=== PATIENT | male | born 1965 | race Caucasian/White ===

== ENCOUNTER 2017-01-25 10:41 | Emergency (ER) | payer OTHER ==
[2017-01-25 10:56] VITALS: PULSE 82; TEMP 97.8; BMI 43.5
[2017-01-25] MEDS ORDERED: predniSONE 20 MG TABLET (UD) PO ONE (11:05)
[2017-01-25] MEDS ORDERED: DOXYCYCLINE HYCLATE 100 MG CAPSULE PO ONE ×2 (11:05→11:09)
[2017-01-25] MEDS ORDERED: valACYclovir HCL 1000 MG TABLET PO ONE (11:05)
[2017-01-25] MEDS ORDERED: predniSONE 20 MG TABLET (UD) ONE (11:09)
--- NOTE | 2017-01-25 11:12 | PDOC ---
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 Patient noticed a tingling pulling sensation the left face and noticed this morning that he was having inability to wrinkle his left forehead, inability to close his left eye, left facial droop. Denies any other symptoms. Came into the ED for further evaluation. Past History - Past Medical History Allergies/Adverse Reactions: Allergies Allergy/AdvReac Type Severity Reaction Status Date / Time No Known Allergies Allergy Verified 01/25/17 10:56 Home Medications: Ambulatory Orders Benazepril/Hydrochlorothiazide [Benazepril-Hctz 20-25 mg Tab] 1 each PO DAILY Doxycycline Hyclate 100 mg PO BID #14 capsule 01/25/17 Ibuprofen [Advil -] 200 mg PO ONCE PRN 01/25/17 Paroxetine HCl [Paxil -] 10 mg PO DAILY 01/25/17 Prednisone [Deltasone -] 20 mg PO DAILY #20 tablet 01/25/17 Valacyclovir HCl [Valtrex] 1,000 mg PO TID #21 tablet 01/25/17 HTN: Yes - Psycho/Social/Smoking Cessation Hx Anxiety: Yes Suicidal Ideation: No Smoking History: Current every day smoker Number of Cigarettes Smoked Daily: 10 If you are a former smoker, when did you quit?: 1 WEEK AGO Information on smoking cessation initiated: Yes 'Breaking Loose' booklet given: 01/25/17 Hx Alcohol Use: No Drug/Substance Use Hx: No Substance Use Type: None Review of Systems - Review of Systems Able to Perform ROS?: Yes Comments:: 01/25/17 11:14 GENERAL/CONSTITUTIONAL: No fever, weakness. HEAD, EYES, EARS, NOSE AND THROAT: No change in vision. No ear pain or discharge. No sore throat. CARDIOVASCULAR: No chest pain or shortness of breath. RESPIRATORY: No cough, wheezing, or hemoptysis. GASTROINTESTINAL: No abdominal pain, nausea, vomiting, diarrhea, or decreased PO intolerance. GENITOURINARY: No dysuria, frequency, or change in urination. MUSCULOSKELETAL: No joint or muscle swelling or pain. No neck or back pain. SKIN: No rash NEUROLOGIC: left facial droop ENDOCRINE: No increased thirst. No abnormal weight change. HEMATOLOGIC/LYMPHATIC: No anemia, easy bleeding, or history of blood clots. ALLERGIC/IMMUNOLOGIC: No hives or skin allergy. *Physical Exam - Vital Signs Last Vital Signs Temp Pulse Resp BP Pulse Ox 97.8 F 82 16 160/128 97 01/25/17 10:42 01/25/17 10:42 01/25/17 10:42 01/25/17 10:42 01/25/17 10:42 - Physical Exam Comments: 01/25/17 11:15 GENERAL: Awake, alert, and fully oriented, in no acute distress. HEAD: No signs of trauma EYES: PERRLA, EOMI, sclera anicteric, conjunctiva. + Unable to move left eye lateral gaze (chronic, pt reports that this is old since childhood and not NEW for today). ENT: Auricles normal inspection, hearing grossly normal, nares patent, oropharynx clear without exudates. NECK: Normal ROM, supple, no lymphadenopathy, JVD, or masses LUNGS: Breath sounds equal, clear to auscultation bilaterally. No wheezes, and no crackles HEART: Regular rate and rhythm, normal S1 and S2, no murmurs, rubs or gallops ABDOMEN: Soft, nontender, normoactive bowel sounds. No guarding, no rebound. No masses EXTREMITIES: Normal range of motion, no edema. No clubbing or cyanosis. No cords, erythema, or tenderness NEUROLOGICAL: +left facial droop. Inability to wrinkle left forehead. normal sensation throughout. 5/5 strength upper and lower extremities. no cerebellar signs. SKIN: Warm, Dry, normal turgor, no rashes or lesions noted. Medical Decision Making - Medical Decision Making 01/25/17 11:16 Vital Signs Temp Pulse Resp BP Pulse Ox 97.8 F 82 16 160/128 97 01/25/17 10:42 01/25/17 10:42 01/25/17 10:42 01/25/17 10:42 01/25/17 10:42 The patient's symptoms are likely secondary to Rose's palsy. Patient reports that his inability to perform left lateral gaze is chronic and not new. States it is no other neurological symptoms. After reviewing the case and seemed patient, I agree that this is most likely Rose's palsy and not stroke. Given that he has a history of right-sided Rose's palsy, we'll need to draw a Lyme's titer and treat empirically with doxycycline. I advised patient call back for the results. We'll also initiate valacyclovir and prednisone. I discussed the physical exam findings, ancillary test results and final diagnoses with the patient. I answered all of the patient's questions. The patient was satisfied with the care received and felt comfortable with the discharge plan and treatment plan. The patient will call their primary care physician within 24 hours to arrange follow-up and will return to the Emergency Department with any new, persistant or worsening symptoms. *DC/Admit/Observation/Transfer Diagnosis at time of Disposition: Rose's palsy - Discharge Dispostion Disposition: HOME Condition at time of disposition: Good Admit: No - Prescriptions Prescriptions: Prednisone [Deltasone -] 20 mg PO DAILY #20 tablet Doxycycline Hyclate 100 mg PO BID #14 capsule Valacyclovir HCl [Valtrex] 1,000 mg PO TID #21 tablet - Referrals Referrals: Roberto Carlos Maxwell MD [Primary Care Provider] - - Patient Instructions Printed Discharge Instructions: DI for Rose's Palsy Additional Instructions: You have rose's palsy on the left side. Because you have a history on the right side rose's palsy, we have drawn a lymes test for you. It is important that you call in 1 to 3 days for the results. Call [phone]. In the meantime, please take the doxycycline (antibiotic) 100 mg every 12 hours for the next week. This medication may cause stomach upset, so it is important that you take this medication with water/food. For your rose's palsy, please take your eye shut with gauze to cover your eye. Take the prednisone (steroids) and valacyclovir (antiviral) medication as prescribed. Call your doctor and follow up.
[2017-01-25] MEDS ORDERED: valACYclovir HCL 500 MG TABLET (FP) ONE (11:13)
[2017-01-25 11:24] VITALS: BP 161/102
== END 2017-01-25 11:38 | disposition home or self-care (01) ==
LOC: FER 10:41
DX: G51.0 Bell's palsy (principal); I10 Essential (primary) hypertension; E66.9 Obesity, unspecified; Z68.41 Body mass index [BMI] 40.0-44.9, adult; F17.210 Nicotine dependence, cigarettes, uncomplicated; F41.9 Anxiety disorder, unspecified
CPT/HCPCS: 36415; 99282-25